=== PATIENT | female | born 1975 | race Caucasian/White ===

== ENCOUNTER 2019-04-10 21:21 | Emergency (ER) | payer OTHER ==
[2019-04-11] MEDS: DEXAMETHASONE 10 MG/ML 1 ML INJ IM (00:40)
[2019-04-11] MEDS: KETOROLAC 30 MG INJ IM (00:40)
== END 2019-04-11 01:52 | disposition home or self-care (01) ==
LOC: FTE 21:21
DX: R51 Headache (principal); E11.9 Type 2 diabetes mellitus without complications; Z79.84 Long term (current) use of oral hypoglycemic drugs
CPT/HCPCS: 81025; 96372; 99284-25

== ENCOUNTER 2019-04-12 23:07 | Emergency (ER) | payer OTHER | END 2019-04-13 03:06 | disposition home or self-care (01) | LOC: E/R 23:07 | DX: R51 Headache (principal); E11.9 Type 2 diabetes mellitus without complications; Z79.84 Long term (current) use of oral hypoglycemic drugs | CPT/HCPCS: 70450; 81025; 99284-25 ==